=== PATIENT | female | born 1995 | race Caucasian/White ===

== ENCOUNTER 2024-01-29 21:51 | Emergency (ER) | payer OTHER ==
[~2024-01-29] VITALS: Ht 152.4 cm; Wt 58.0 kg
[2024-01-29 22:01] VITALS: O2SAT 100
[2024-01-30 00:30] VITALS: TEMP 98.4
[2024-01-30] MEDS: ACETAMINOPHEN 325MG TABLET PO ONE (00:30)
[2024-01-30] MEDS ORDERED: CEPH500C2 MT (00:57)
[2024-01-30] MEDS ORDERED: TOPUD MT (00:57)
[2024-01-30 01:57] VITALS: BP 112/63; PULSE 75; RESP 19; O2SAT 100
== END 2024-01-30 01:58 | disposition home or self-care (01) ==
LOC: ER 21:51
DX: R51.9 Headache, unspecified (principal); K02.9 Dental caries, unspecified; Z98.890 Other specified postprocedural states
CPT/HCPCS: 99283